=== PATIENT | female | born 1965 | race Two or more races ===

== ENCOUNTER 2018-01-17 10:22 | Outpatient (CLI) | payer OTHER ==
[~2018-01-17 10:22] MED LIST: ASACOR; [UNRECOGNIZED DRUG - OTHER]; [UNRECOGNIZED DRUG - OTHER]
== END 2018-01-17 10:32 | disposition home or self-care (01) ==
LOC: NUCLEAR 10:22
DX: I73.9 Peripheral vascular disease, unspecified (principal); M81.0 Age-related osteoporosis without current pathological fracture

== ENCOUNTER 2018-01-18 10:48 | Outpatient (CLI) | payer OTHER | END 2018-01-18 13:23 | disposition home or self-care (01) | LOC: NUCLEAR 10:48 | DX: I73.9 Peripheral vascular disease, unspecified (principal); I87.2 Venous insufficiency (chronic) (peripheral) ==